=== PATIENT | female | born 1935 | race Caucasian/White ===

== ENCOUNTER → 2016-08-24 | Outpatient (CLI) | payer MEDICARE, OTHER ==
[~2016-08-24] MED LIST: ASP81CT PO; COLE625T; DLT120CCR PO; FRSM40T PO; FURO-125 PO; GLIM2TAB PO; IRON150C3 PO; LSNP10T PO; LVF500T PO; METO5TAB75 PO; NAPR220T76 PO; NEBI2.5T2 PO; NEBI20TA2 PO; NEBI5TAB8; NEBI5TAB8 PO; NF-LISIN40; NF-LISIN40 PO; NFR150C PO; OMEP20TA33 PO; ROSU20TA PO; SIMV40TA2 PO; SITA100T PO; SPIR25TA PO; TELM80TA; TRM50T PO
--- NOTE | 2016-08-25 14:49 | Diagnostic Imaging Report ---
EXAMINATION: DIG FREDO BILAT SCREEN W CAD. COMPARISON: 06/23/2015, 04/17/2014, and 04/10/2013. INDICATION: Screening mammography. TECHNIQUE: Digital screening mammography was obtained with a computer-aided detection (CAD) system. FINDINGS: There are scattered fibroglandular densities. Benign secretory calcifications and vascular calcifications in each breast are similar. These calcifications remain greater in number on the left. There is a stable benign intramammary lymph node in the right upper outer quadrant. No dominant mass, suspicious microcalcifications, or architectural distortion to suggest malignancy. IMPRESSION: Stable mammogram without evidence of malignancy. Followup screening mammogram in 12 months is recommended. ACR BI-RADS Category 2: Benign findings. Result letter will be mailed to the patient. Note: At least 10% of breast cancer is not imaged by mammography. Dictated by: Dictated on workstation # [id number]
== END ==
LOC: RAD 10:15
PROVIDERS: ATTEND Family Medicine
DX: Z12.31 Encounter for screening mammogram for malignant neoplasm of breast (principal)